=== PATIENT | male | born 1985 | race Hispanic/Latino ===

== ENCOUNTER 2019-10-22 23:27 | Emergency (ER) | payer SELFPAY ==
[~2019-10-22] VITALS: Ht 172.7 cm; Wt 102.1 kg
[2019-10-23] MEDS ORDERED: ACETAMINOPHEN 325 MG TAB PO ONE
[2019-10-23 00:16] LABS: INFLUENZAE A&B ANTIGEN (RAPID) NEGATIVE (NEGATIVE); STREPTOCOCCUS GRP A ANTIGEN NEGATIVE (NEGATIVE)
--- NOTE | 2019-10-23 01:17 | Diagnostic Imaging Report ---
EXAMINATION: CHEST 2 VIEWS INDICATION: Short of breath COMPARISON: None FINDINGS: TUBES and LINES: None. LUNGS: Normal lung volumes. Subtle left basilar focal haziness. PLEURA: No pleural effusion or pneumothorax. HEART AND MEDIASTINUM: The cardiomediastinal silhouette is unremarkable. BONES AND SOFT TISSUES: No acute osseous lesion. Soft tissues are unremarkable. UPPER ABDOMEN: No free air under the diaphragm. IMPRESSION: Subtle left basilar focal haziness can be due to atelectasis or pneumonia. Signed by: Alo Santos DO on 10/23/2019 1:14 AM
[2019-10-23] MEDS ORDERED: AZITHROMYCIN250 MG PO (01:21)
== END 2019-10-23 01:42 | disposition home or self-care (01) ==
LOC: ER 23:27
DX: R50.9 Fever, unspecified (principal); R05 Cough; J15.9 Unspecified bacterial pneumonia
CPT/HCPCS: 71046; 83518; 87070; 87400; 99283

== ENCOUNTER 2024-02-27 07:57 | Emergency (ER) | payer BC ==
[~2024-02-27] VITALS: Ht 172.7 cm; Wt 104.3 kg
[~2024-02-27 07:57] MED LIST: AZITHROMYCIN250 MG PO; METFORMIN HCL1000 MG PO
[2024-02-27 08:11] VITALS: PULSE 83; RESP 18; TEMP 97.2; O2SAT 100
[2024-02-27] MEDS ORDERED: METHOCARBAMOL750 MG PO (08:16)
== END 2024-02-27 08:30 | disposition home or self-care (01) ==
LOC: ER 08:07
DX: M25.511 Pain in right shoulder (principal); E11.9 Type 2 diabetes mellitus without complications
CPT/HCPCS: 99282

== ENCOUNTER 2024-09-27 22:31 | Emergency (ER) | payer BC ==
[~2024-09-27] VITALS: Ht 175.3 cm; Wt 103.4 kg
[~2024-09-27 22:31] MED LIST changes: +METHOCARBAMOL750 MG PO
[2024-09-27 22:33] VITALS: PULSE 68; RESP 18; TEMP 97.9; O2SAT 98
== END 2024-09-27 23:07 | disposition home or self-care (01) ==
LOC: FSED 22:47
DX: S00.572A Other superficial bite of oral cavity, initial encounter (principal); K14.6 Glossodynia; X58.XXXA Exposure to other specified factors, initial encounter; Y92.89 Other specified places as the place of occurrence of the external cause; E11.9 Type 2 diabetes mellitus without complications
CPT/HCPCS: 99282